=== PATIENT | female | born 1975 | race Caucasian/White ===

== ENCOUNTER 2016-11-23 14:09 | Emergency (ER) | payer OTHER ==
--- NOTE | 2016-11-23 14:14 | EDPHY ---
H & P Source: EMS Constitutional: Initial Vital Signs Heart Rate 90 11/23/16 14:23 Respiratory Rate 18 11/23/16 14:23 Blood Pressure 124/79 H 11/23/16 14:23 O2 Sat (%) 97 11/23/16 14:23 O2 Delivery Mode Room Air Allergies/Adverse Reactions: No Known Allergies Allergy (Unverified 03/25/10 20:50) Home Medications: Medication Instructions Recorded NO HOME MEDS 03/25/10 Medical Decision Making ED Course/Re-evaluation: CHIEF COMPLAINT: Stoke alert, left-sided deficits HISTORY OF PRESENT ILLNESS: The patient is a healthy 41 y/o female arriving emergently via EMS as a Stroke Alert after she developed acute left-sided weakness while riding to work less than an hour ago. She was last seen normal at 13:20, approximately 50 minutes prior to arrival in the ED. Her friend picked her up for work and noticed she was not acting appropriately and contacted 911 upon arrival at work. For EMS, she was unable to see anything in her left field of vision and had difficulty tracking. When asked to raise her left leg she raised her right leg. She denies any medical history including seizures or migraines, recent surgeries, and does not use anticoagulants. She mentions she might be . She tells me her right and left arm feel heavy. REVIEW OF SYSTEMS: A 10 point review of systems was performed and is negative with the exception of the elements mentioned in the history of present illness. PHYSICAL EXAM: General Appearance: Alert, well hydrated, obvious left hemiparesis, some inappropriate motor responses to commands. Head: Atraumatic without scalp tenderness or obvious injury Eyes: Pupils equal, round, reactive to light and accommodation, EOMI, no trauma , no injection. Ears: Clear bilaterally, no perforation, normal landmarks Nose: Atraumatic, no rhinorrhea, clear. Throat: There is no erythema or exudates, no lesions, normal tonsils, mucus membranes moist. Neck: Supple, 2+ carotid upstroke, non-tender, no lymphadenopathy. Respiratory: No retractions, no distress, no wheezes, and no accessory muscle use. Lungs are clear to auscultation bilaterally. Cardiovascular: Regular rate and rhythm, no murmurs, rubs, or gallops. Bilateral carotid, radial, dorsalis pedis, and posterior tibial pulses intact. Good capillary refill all extremities. Gastrointestinal: Abdomen is soft, non-tender, non-distended, no masses, no rebound, no guarding, no peritoneal signs. Musculoskeletal: Normal active ROM of all extremities, atraumatic. Neurological: Alert and interactive. Oriented x4. Left-sided neglect, left arm and leg weakness. Intermittent left hemiparesis, able to lift left leg once, but not on command. Looks to the right when I ask her to look to the left. Intermittent left hand posturing consistent with upper motor neuron sign. Skin: No rashes, good turgor, no nodules on palpation. PAST MEDICAL HISTORY: Denies PAST SURGICAL HISTORY: Denies SOCIAL HISTORY: : Arnold Wilkerson [phone] DIAGNOSTICS/PROCEDURES/CRITICAL CARE TIME: Study: CT of the Head Indication: Stoke alert Results: CT scan of the head was obtained. The results of the study are normal. The study was read by the radiologist, Dr. Seo. I viewed the images myself on the PACS system. I spent a total of 45 minutes of critical care time including but not limited to obtaining history, performing a physical exam, ordering interventions and the bedside monitoring of those interventions, collecting and interpreting tests and discussion with consultants but not including time spent performing procedures. DIFFERENTIAL DIAGNOSIS: The differential diagnosis for the patient's neurologic deficits included but was not limited to peripheral causes, central causes including CVA, TIA, electrolyte abnormalities and dehydration, cardiogenic causes, atypical causes like migraine syndrome. MEDICAL DECISION MAKIN: Met EMS upon arrival and took report. IV established by EMS. Labs sent including BHCG. 1409: Patient sent to CT for non-contrast Head CT. [facility] on standby. TPA mixed. 1415: Head CT: My interpretation is negative for bleed. Waiting on radiologist read. 1420: Patient returned from CT. Waiting on [facility] consult and radiologist read of noncontrast head CT. Plan for TPA and head CTA pending neurologist assessment. 1430: [facility] remote evaluation. Patient states she felt normal upon waking. Around 12:20 she had the sensation of a "fishbowl closing in." She felt like she would faint and began to feel weakness at that time. She says she "spatially felt like I lost time." She reports she is trying to get , but does not think she is currently . Reexamination shows improvement of left leg weakness, continued left-sided neglect, and now noticeable posturing of left hand that is likely an upper motor neuron sign. 1440: Neurologist recommends TPA and CTA. BHCG is negative. I discussed the risks and benefits of the medication with the patient. She consents to TPA use. 1443: TPA administered. 1445: Consulted with Dr. Leslie, [facility]. She wants the patient flown immediately prior to CTA. [facility] has been informed and is on standby. EMS medic contacted patient's to inform of transfer. did not answer the phone. 1510: Patient transferred via [facility] to [facility] ([place], [place]). - Data Points Laboratory Results: Laboratory Results 11/23/16 14:15 11/23/16 14:15 11/23/16 11/23/16 14:15 14:12 WBC 8.28 10^3/uL (3.80-9.50) RBC 4.65 10^6/uL (4.18-5.33) Hgb 13.7 g/dL (12.6-16.3) POC Hgb 14.3 gm/dL (12.3-15.9) Hct 39.3 % (38.0-47.0) POC Hct 42 % (35.5-47.5) MCV 84.5 fL (81.5-99.8) MCH 29.5 pg (27.9-34.1) MCHC 34.9 g/dL (32.4-36.7) RDW 12.8 % (11.5-15.2) Plt Count 325 10^3/uL (150-400) MPV 9.5 fL (8.7-11.7) Neut % (Auto) 75.3 H % (39.3-74.2) Lymph % (Auto) 17.5 % (15.0-45.0) [place] % (Auto) 5.3 % (4.5-13.0) Eos % (Auto) 0.8 % (0.6-7.6) Baso % (Auto) 0.6 % (0.3-1.7) Nucleat RBC Rel Count 0.0 % (0.0-0.2) Absolute Neuts (auto) 6.23 10^3/uL (1.70-6.50) Absolute Lymphs (auto) 1.45 10^3/uL (1.00-3.00) Absolute Monos (auto) 0.44 10^3/uL (0.30-0.80) Absolute Eos (auto) 0.07 10^3/uL (0.03-0.40) Absolute Basos (auto) 0.05 10^3/uL (0.02-0.10) Absolute Nucleated RBC 0.00 10^3/uL (0-0.01) Immature Gran % 0.5 % (0.0-1.1) Immature Gran # 0.04 10^3/uL (0.00-0.10) PT 14.1 SEC (12.0-15.0) INR 1.10 (0.83-1.16) APTT 29.1 SEC (23.0-38.0) POC Sodium 141 mEq/L (134-144) Sodium 142 mEq/L (134-144) POC Potassium 3.4 mEq/L (3.3-5.0) Potassium 3.6 mEq/L (3.5-5.2) POC Chloride 100 mEq/L (96-108) Chloride 101 mEq/L (97-110) Carbon Dioxide 28 mEq/l (22-31) Anion Gap 13 mEq/L (8-16) POC BUN 5 L mg/dL (7-23) BUN 6 L mg/dL (7-23) Creatinine 0.7 mg/dL (0.6-1.0) POC Creatinine 0.7 mg/dL (0.6-1.2) Estimated GFR > 60 Glucose 107 H mg/dL (70-100) POC Glucose 109 H mg/dL (70-100) Calcium 9.7 mg/dL (8.5-10.4) Troponin I < 0.012 ng/mL (0-0.034) Beta HCG, Qual NEGATIVE Medications Given: Discontinued Medications Alteplase, Recombinant (Activase) 62.38769 mg IV ONCE ONE PRN Reason: Protocol Stop: 11/23/16 14:54 Last Admin: 11/23/16 14:45 Dose: 62.47862 mg Alteplase, Recombinant (Activase) 6.07472 mg IV ONCE ONE PRN Reason: Protocol Stop: 11/23/16 14:54 Last Admin: 11/23/16 14:43 Dose: 6.32547 mg Point of Care Test Results: 11/23/16 14:12 POC Sodium 141 POC Potassium 3.4 POC Chloride 100 POC BUN 5 L POC Creatinine 0.7 POC Glucose 109 H Departure - Departure Disposition: [facility] Clinical Impression: Acute ischemic stroke Condition: Serious Referrals: Patient,NotPresent [Primary Care Provider] - As per Instructions
[2016-11-23] MEDS ORDERED: ALTEPLASE 100 MG/100 ML VIAL IV ONE ×2 (14:22→14:53)
[2016-11-23 14:25] VITALS: RESP 18; O2SAT 97
[2016-11-23 14:26] LABS: % IMMATURE GRANULYOCYTES 0.5 % (0.0-1.1); ABSOLUTE IMMATURE GRANULOCYTES 0.04 10^3/uL (0.00-0.10); ADD DIFF? NO; ADD MORPH? NO; ADD SCAN? NO; ATYPICAL LYMPHOCYTE FLAG 0 (0-99); FRAGMENT RBC FLAG 0 (0-99); HEMATOCRIT 39.3 % (38.0-47.0); HEMOGLOBIN 13.7 g/dL (12.6-16.3); LEFT SHIFT FLG 0 (0-99); LIPEMIA HEMOLYSIS FLAG 90 (0-99); MEAN CELL HEMOGLOBIN 29.5 pg (27.9-34.1); MEAN CELL HEMOGLOBIN CONCENTR. 34.9 g/dL (32.4-36.7); MEAN CELL VOLUME 84.5 fL (81.5-99.8); MEAN PLATELET VOLUME 9.5 fL (8.7-11.7); PLATELET CLUMPS FLAG 0 (0-99); PLATELET COUNT 325 10^3/uL (150-400); RED BLOOD CELL COUNT 4.65 10^6/uL (4.18-5.33); RED CELL DISTRIBUTION WIDTH 12.8 % (11.5-15.2)
--- NOTE | 2016-11-23 14:27 | CT ---
Noncontrast Head CT 1416 hours History: Stroke alert. Left-sided deficits with arm weakness. Technique: Standard noncontrast head CT protocol utilizing axial images was acquired through the hunter varium. Images were reconstructed in multiple planes as well. Dose reduction techniques were utilized . Findings: The cerebral parenchyma has a normal attenuation throughout. There are no masses, intracran ial hemorrhage, subdural collections, or evidence of recent cerebral infarction. The bones are unrem arkable. There is mild mucosal thickening inferior aspect of each maxillary sinus. Otherwise, the par anasal sinuses are clear. Impression: 1. No intracranial abnormality seen. 2. Nonspecific mild inferior maxillary sinus disease. These findings were sent by secure text message to Dr. Aryan Rizo at 1425 hrs.
[2016-11-23 14:35] LABS: INR 1.1 (0.83-1.16); PROTIME(PATIENT) 14.1 SEC (12.0-15.0)
[2016-11-23 14:36] LABS: APTT 29.1 SEC (23.0-38.0)
[2016-11-23] MEDS ORDERED: IOPAMIDOL (ISOVUE 370) 100 ML BTL IV ONE (14:38)
[2016-11-23 14:46] LABS: ANION GAP 13 mEq/L (8-16); CALCIUM 9.7 mg/dL (8.5-10.4); CARBON DIOXIDE 28 mEq/l (22-31); CHLORIDE 101 mEq/L (97-110); CREATININE 0.7 mg/dL (0.6-1.0); GLOMERULAR FILTRATION RATE > 60; GLUCOSE 107 mg/dL (70-100); POTASSIUM 3.6 mEq/L (3.5-5.2); SODIUM 142 mEq/L (134-144)
--- NOTE | 2016-11-23 14:49 | CPEKG ---
Heart Rate: 91 RR Interval: 659 P-R Interval: 152 QRSD Interval: 122 QT Interval: 392 QTC Interval: 483 P [place]: 47 QRS [place]: 50 T Wave [place]: -4 EKG Severity - ABNORMAL ECG - EKG Impression: SINUS RHYTHM EKG Impression: NONSPECIFIC INTRAVENTRICULAR CONDUCTION DELAY EKG Impression: MINIMAL ST DEPRESSION, INFERIOR LEADS Electronically Signed By: Aryan Rizo 23-Nov-2016 20:16:23
[2016-11-23] MEDS ORDERED: NS 50 ML IV ONE (14:53)
[2016-11-23] MEDS ORDERED: ALTEPLASE 1 MG/ML SYR IV ONE (14:53)
[2016-11-23 14:55] LABS: TROPONIN I < 0.012 ng/mL (0-0.034)
[2016-11-23 15:17] VITALS: PULSE 87; TEMP 98
[2016-11-23 15:48] VITALS: BP 130/90
== END 2016-11-23 15:08 | disposition short-term general hospital (02) ==
LOC: EDUNIT#
DX: I63.9 Cerebral infarction, unspecified (principal)
CPT/HCPCS: 82947-QW; 96374; J2997; Q9967

== ENCOUNTER 2016-11-26 14:40 | Inpatient (IN) | payer OTHER ==
[2016-11-27] MEDS ORDERED: MAG HYDROX/AL HYDROX/SIMETH 30 ML UDCUP PO PRN (17:24)
[2016-11-27] MEDS ORDERED: ACETAMINOPHEN 325 MG TAB PO PRN (17:24)
[2016-11-27] MEDS ORDERED: POLYETHYLENE GLYCOL 3350 17 GM PKT PO PRN (17:24)
[2016-11-27] MEDS ORDERED: SENNOSIDES/DOCUSATE SODIUM TAB PO PRN (17:24)
[2016-11-27] MEDS: ATORVASTATIN CALCIUM 20 MG TAB PO SCH (19:58)
--- NOTE | 2016-11-27 20:53 | PDGENHP ---
History and Physical - Chief Complaint Stroke - History of Present Illness Date of admission: 11/27/2016 Referring physician: Martina Bhatia MD Time of evaluation: 1700 Referring facility: [facility] Rehabilitation diagnosis: Stroke Impairment group: 01.1 Etiologic diagnosis: ~Stroke Date of onset: 11/23/2016 History of present illness: ~Olinda Wilkerson is a pleasant Left handed 41 year old female who presents for acute rehabilitation following right MEDIA RELATIONS SPECIALIST infarct. Healthy female noted left hemiparesis and presented to [facility] on 11/23 and was noted to have NIHSS of 13 so was administered tpa and transferred to [facility] for Neuro ICU. MRB significant for right MEDIA RELATIONS SPECIALIST infarct with left occipital, temporal and thalamus ischemia (some petechial hemorrhaging in occipital lobe). Had CTA without significant large vessel obstruction or atherosclerosis, Echo without thrombus or shunt, EKG NSR, and LDL 93. Hypercoagulopathic work up pending but strong family history of clotting predisposition (no personal h/o clots), currently on ASA 81mg and LMWH prophy. Has had significant improvement in deficits since onset. Lives in garden apartment with . 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 Home is 6 steps down then all on one floor, mostly available for assist. PT/OT from 11/25 note Min-ModA for most ADLs and mobility SAFETY AND SKILL BASED PAY MANAGER notes no aphasia or dysphagia History Information - Allergies/Home Medication List Allergies/Adverse Reactions: No Known Allergies Allergy (Unverified 03/25/10 20:50) Home Medications: Aspirin EC [Aspirin EC 81 mg (*)] 81 mg PO DAILY 11/27/16 [Last Taken 11/27/16 09:00] Atorvastatin Calcium [Lipitor 20 mg (*)] 20 mg PO HS 11/27/16 [Last Taken 21:00] I have personally reviewed and updated: family history, medical history, social history, surgical history Past Medical History: none - Past Medical History no pertinent PMH - Surgical History Reports: no pertinent surgical hx - Family History Additional family history: Multiple DVTs - Social History Smoking Status: Never smoked Alcohol Use: None Drug Use: None Additional social history: See hpi Review of Systems ROS: 10pt was reviewed & negative except for what was stated in HPI & below EENMT: Reports: other (loss of vision) Neurological: Reports: weakness Physical Exam Temp Pulse Resp BP Pulse Ox 36.4 C 74 18 114/74 94 11/27/16 15:30 11/27/16 15:30 11/27/16 15:30 11/27/16 15:30 11/27/16 15:30 Constitutional: no apparent distress, appears nourished, not in pain Eyes: PERRL, anicteric sclera, EOMI Ears, Nose, Mouth, Throat: moist mucous membranes Cardiovascular: regular rate and rhythym, no murmur, rub, or gallop Respiratory: no respiratory distress, clear to auscultation Skin: normal color Musculoskeletal: no muscle tenderness Neurologic: AAOx3, sensation intact bilaterally, weakness (Right UE+LE 5/5, Left UE 3/5 and Left LE 4/5), other (left homonymous hemianopsia AND left neglect to DSS) Psychiatric: interacting appropriately (somewhat disinhibited) Lab Data & Imaging Review (from 11/25) WBC 1.8 HGB 11.2 PLT 250 Na 141 K 3.8 (11/27) Cl 105 C02 28 BUN 7 Cr 0.66 Glu 97 LFTs normal Albumin 3 Imaging Review: MRB with Left temporal, occipital, and thalamic infarct. Also notable chronic right frontal volume loss. Visualized and Interpreted EKG results: No EKG Interpretation: Positive for: normal sinsus rhythm Assessment & Plan Assessment: Ms. Wilkerson is a pleasant Left handed 41 year old female who presents following acute right MEDIA RELATIONS SPECIALIST infarct on 11/23 with residual left hemiparesis, dense left homonymous hemianopia, left neglect, and mild cognitive decline resulting in significant functional decline with ADLs and mobility. She is appropriate for rehabilitation with therapy needs for speech therapy regarding her cognitive decline and physical and occupational therapy regarding mobility and activities of daily living. Her goal is to be independent enough to return home and live~without assistance. She will need close medical management and nursing care regarding her comorbidities including coagulopathy, risk for falls, risk for DVT, infectious risks,~initiation of complicated novel medical regiment, and medical education. She will receive therapy including Physical Therapy, occupational therapy, and speech and language pathology, for 30-60 minutes each day 5-7 days a week, with a total of 15 hours per week or more, her expected duration of stay is 10-14 days. Is expected that once she is ready for discharge she will continue to benefit from an outpatient neuro rehab program once she returns home. Plan: * Debility following Right MEDIA RELATIONS SPECIALIST infarct. Continue physical and occupational therapy to optimize functional status and mobility, SAFETY AND SKILL BASED PAY MANAGER to optimize cognitive function address neglect. * Right MEDIA RELATIONS SPECIALIST Stroke (temporal, occipital and thalamic involvement) -Embolic and athlerosclerotic work up negative, family history suggestive of hypercoagulopathic etiology, work up pending -Prophy: Atorva 20mg, ASA 81mg daily->will likely need full AC pending Neuro f/u * Prophylaxis-> DVT, Lovenox 40mg daily. ~GI not indicated F/U: Dr. Wilfredo Ayala (Neuro) in 2-3 weeks Will need to establish PCP [facility] 10 days. Plan to d/c to home (garden apartment) with available for assist. Will likely be unable to drive at discharge
[2016-11-28] MEDS: ASPIRIN EC 81 MG TAB PO SCH (09:48)
[2016-11-28] MEDS: ENOXAPARIN 40 MG/0.4 ML SYR SC SCH (09:48)
--- NOTE | 2016-11-28 12:32 | SOAPPROG ---
SOAP Progress Note Assessment/Plan: Ms. Wilkerson is a pleasant Left handed 41 year old female who presents following acute right SOCIAL SCIENCES RESEARCH SCIENTIST infarct on 11/23 with residual left hemiparesis, dense left homonymous hemianopia, left neglect, and mild cognitive decline resulting in significant functional decline with ADLs and mobility. * Debility following Right SOCIAL SCIENCES RESEARCH SCIENTIST infarct. Continue physical and occupational therapy to optimize functional status and mobility, TAP BUILDER to optimize cognitive function address neglect. * Right SOCIAL SCIENCES RESEARCH SCIENTIST Stroke (temporal, occipital and thalamic involvement) -Embolic and atherosclerotic work up negative, family history suggestive of hypercoagulopathic etiology, work up pending -Prophy: Atorva 20mg, ASA 81mg daily->will likely need full AC pending Neuro f/u * Prophylaxis-> DVT, Lovenox 40mg daily. GI not indicated F/U: Dr. Wilfredo Ayala (Neuro) in 2-3 weeks Will need to establish PCP [facility] 7 days. Plan to d/c to home (garden apartment) with available for assist. Will likely be unable to drive at discharge Subjective: No events. No complaints this a.m. Notes fairly rapid physical recovery though frustrated with hand dexterity. Denies constipation or nausea. Objective: Vital Signs Temp Pulse Resp BP Pulse Ox 36.5 C 88 18 101/74 93 11/28/16 08:00 11/28/16 08:00 11/28/16 08:00 11/28/16 08:00 11/28/16 08:00 11/27/16 11/28/16 11/29/16 05:59 05:59 05:59 Intake Total 540 Output Total 350 Balance 190 - Pending Discharge Pending Discharge Within 24 Hours: No Pending Discharge Within 48 Hours: No Physical Exam - Physical Exam General Appearance: alert, no apparent distress EENT: PERRL/EOMI Neck: supple Respiratory: lungs clear, normal breath sounds Cardiac/Chest: regular rate, rhythm Abdomen: non-tender, soft Skin: normal color Neuro/Psych: alert, normal mood/affect, oriented x 3, motor weakness (Left UE (2 -3/5)>LE (3-4/5) kyrie), sensory deficit (Left field cut and left neglect) ICD10 Worksheet Patient Problems: Problems Problem Status Diagnosed Acute right SOCIAL SCIENCES RESEARCH SCIENTIST stroke Acute - ICD10 Problem Qualifiers (1) Acute right SOCIAL SCIENCES RESEARCH SCIENTIST stroke
[2016-11-28] MEDS: ATORVASTATIN CALCIUM 20 MG TAB PO SCH (21:10)
[2016-11-29] MEDS: ENOXAPARIN 40 MG/0.4 ML SYR SC SCH (07:17)
[2016-11-29] MEDS: ASPIRIN EC 81 MG TAB PO SCH (07:17)
--- NOTE | 2016-11-29 12:41 | SOAPPROG ---
SOAP Progress Note Assessment/Plan: Assessment: Left handed 41 year old female S/P acute right DEHAIRER infarct on 11/23, treated with TPA, with residual left hemiparesis, dense left homonymous hemianopia, left neglect, and mild cognitive decline resulting in significant functional decline with ADLs and mobility: * Debility following Right DEHAIRER infarct. Continue physical and occupational therapy to optimize functional status and mobility, MANAGER STRATEGY & ACCOUNT to optimize cognitive function address neglect. * Right DEHAIRER Stroke (temporal, occipital and thalamic involvement) -Embolic and atherosclerotic work up negative, family history suggestive of hypercoagulopathic etiology, work up pending -Prophy: Atorva 20mg, ASA 81mg daily->will likely need full AC pending Neuro f/u * Prophylaxis-> DVT, Lovenox 40mg daily. GI not indicated * Insomnia. Will D/C SCDs to promote sleep. She wants to try "Sleepytime" tea to be brought in by . F/U: Dr. Wilfredo Ayala (Neuro) in 2-3 weeks Will need to establish PCP [facility] 7 days. Plan to d/c to home (garden apartment) with available for assist. Will likely be unable to drive at discharge 11/29/16 12:41 Subjective: C/O difficulty falling asleep last night. Had some discomfort with SCDs. Mind was racing. No pain, f/c, dyspnea, cough, n/v/c/d. Reports return of function LUE. Objective: Vital Signs Temp Pulse Resp BP Pulse Ox 36.8 C 62 16 97/65 L 97 11/29/16 06:55 11/29/16 06:55 11/29/16 06:55 11/29/16 06:55 11/29/16 06:55 11/28/16 11/29/16 11/30/16 05:59 05:59 05:59 Intake Total 540 880 Output Total 350 1050 Balance 190 -170 Physical Exam - Physical Exam General Appearance: WD/WN, alert, no apparent distress Respiratory: normal breath sounds, No crackles, No rhonchi, No wheezing Cardiac/Chest: regular rate, rhythm, No edema Skin: normal color Neuro/Psych: alert, normal mood/affect, oriented x 3, motor weakness (LUE ataxia ), other (R gaze preference. Sensation intact to DSS B UE.), No EOM palsy ICD10 Worksheet Patient Problems: Problems Problem Status Diagnosed Acute right DEHAIRER stroke Acute
[2016-11-29] MEDS: ATORVASTATIN CALCIUM 20 MG TAB PO SCH (20:09)
[2016-11-30] MEDS: ASPIRIN EC 81 MG TAB PO SCH (07:49)
[2016-11-30] MEDS: ENOXAPARIN 40 MG/0.4 ML SYR SC SCH (07:49)
--- NOTE | 2016-11-30 14:26 | SOAPPROG ---
SOAP Progress Note Assessment/Plan: Assessment: Left handed 41 year old female S/P acute right DRYLAND FARMER infarct on 11/23, treated with TPA, with residual left hemiparesis, dense left homonymous hemianopia, left neglect, and mild cognitive decline resulting in significant functional decline with ADLs and mobility: * Debility following Right DRYLAND FARMER infarct. 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 * Right DRYLAND FARMER Stroke (temporal, occipital and thalamic involvement) -Embolic and atherosclerotic work up negative, family history suggestive of hypercoagulopathic etiology, work up pending -Prophy: Atorvastatin 20mg, ASA 81mg daily->will likely need full AC pending Neuro f/u * Prophylaxis-> DVT, Lovenox 40mg daily. GI not indicated * Insomnia. Will D/C SCDs to promote sleep. She wants to try "Sleepytime" tea to be brought in by . F/U: Dr. Wilfredo Ayala (Neuro) in 2-3 weeks Will need to establish PCP [facility] 7 days. Plan to d/c to home (garden apartment) with available for assist. Will likely be unable to drive at discharge 11/30/16 14:25 Subjective: No complaints. Slept much better without SCDs. Denies f/c, cough/dyspnea, n/v/ c/d. Objective: Vital Signs Temp Pulse Resp BP Pulse Ox 36.9 C 81 18 115/78 90 L 11/29/16 19:38 11/29/16 19:38 11/29/16 19:38 11/29/16 19:38 11/29/16 19:38 11/29/16 11/30/16 12/01/16 05:59 05:59 05:59 Intake Total 880 1500 Output Total 1050 500 Balance -170 1000 Physical Exam - Physical Exam General Appearance: WD/WN, alert, no apparent distress Respiratory: No respiratory distress, No accessory muscle use Skin: normal color, warm/dry Neuro/Psych: alert, normal mood/affect, oriented x 3, abnormal gait (Ambulating with bilateral trekking poles; dysrhythmia on L.) ICD10 Worksheet Patient Problems: Problems Problem Status Diagnosed Acute right DRYLAND FARMER stroke Acute
[2016-11-30] MEDS: ATORVASTATIN CALCIUM 20 MG TAB PO SCH (20:33)
[2016-12-01] MEDS: ASPIRIN EC 81 MG TAB PO SCH (08:43)
[2016-12-01] MEDS: ENOXAPARIN 40 MG/0.4 ML SYR SC SCH (08:44)
--- NOTE | 2016-12-01 11:38 | SOAPPROG ---
SOAP Progress Note Assessment/Plan: Assessment: Left handed 41 year old female S/P acute right DRYWALL HANGER infarct on 11/23, treated with TPA, with residual left hemiparesis, dense left homonymous hemianopia, left neglect, and mild cognitive decline resulting in significant functional decline with ADLs and mobility: * Debility following Right DRYWALL HANGER infarct. Initial FIM 72 on 12/01/16. Functionally limited by L neglect, decreased motor planning, decreased proprioception LLE, impacting mobility and ADLs. Continue physical and occupational therapy to optimize functional status and mobility. * Cognitive impairment. Noted to be perseverative, disinhibited and impulsive, with deficits to memory, problem solving and new learning. 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 * Right DRYWALL HANGER Stroke (temporal, occipital and thalamic involvement) -Embolic and atherosclerotic work up negative, family history suggestive of hypercoagulopathic etiology, work up pending. Message left for [facility] re plan for anticoagulation. [facility] today : no result yet for Protein S deficiency. -Prophy: Atorvastatin 20mg, ASA 81mg daily->will likely need full AC pending Neuro f/u * Prophylaxis-> DVT, Lovenox 40mg daily. GI not indicated * Insomnia. D/C'd SCDs to promote sleep. She wants to try "Sleepytime" tea to be brought in by . She's sleeping much better. F/U: Dr. Wilfredo Ayala (Neuro) in 2-3 weeks Will need to establish PCP Attended staffing, 15 min. D/W case mgmt, nursing, PT, OT, BOILER INSPECTOR, construction millwright. Plan to d/c to home (garden apartment) with available for assist. Will likely be unable to drive at discharge. Tentative discharge date 12/10/16. 12/01/16 11:38 Subjective: No complaints. Slept well. No pain. No f/c, cough/dyspnea, n/v/c/d. Reports she had a menstrual ROUSE the first 3 days she was here but currently no ROUSE. Rouse was no migrainous: low-level pain, not unilateral, not pounding, no nausea. Objective: Vital Signs Temp Pulse Resp BP Pulse Ox 36.6 C 77 12 102/68 98 12/01/16 08:00 12/01/16 08:00 12/01/16 08:00 12/01/16 08:00 12/01/16 08:00 11/30/16 12/01/16 12/02/16 05:59 05:59 05:59 Intake Total 1500 720 240 Output Total 500 Balance 1000 720 240 - Time Spent With Patient Time Spent With Patient: Greater than 35 minutes floor time today, including more than 50% of time in coordination of care during staffing meeting, and counseling patient. Physical Exam - Physical Exam General Appearance: WD/WN, alert, no apparent distress Respiratory: No accessory muscle use, No decreased breath sounds Skin: normal color, warm/dry Neuro/Psych: alert, normal mood/affect, oriented x 3 ICD10 Worksheet Patient Problems: Problems Problem Status Diagnosed Acute right DRYWALL HANGER stroke Acute
[2016-12-01] MEDS: ATORVASTATIN CALCIUM 20 MG TAB PO SCH (20:18)
[2016-12-02] MEDS: ENOXAPARIN 40 MG/0.4 ML SYR SC SCH (09:43)
[2016-12-02] MEDS: ASPIRIN EC 81 MG TAB PO SCH (09:43)
--- NOTE | 2016-12-02 16:47 | SOAPPROG ---
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 Initial FIM 72 on 12/01/16. Functionally limited by L neglect, decreased motor planning, decreased proprioception LLE, impacting mobility and ADLs. Continue physical and occupational therapy to optimize functional status and mobility. * Cognitive impairment. Noted to be perseverative, disinhibited and impulsive, with deficits to memory, problem solving and new learning. Continue UPHOLSTERER INSIDE. * Right BENCH HAND MACHINE Stroke (temporal, occipital and thalamic involvement) -Embolic and atherosclerotic work up negative, family history suggestive of hypercoagulopathic etiology, work up pending. Message left for [facility] 11/30/16 re plan for anticoagulation. Called [facility] : no result yet for Protein S deficiency. -Prophy: Atorvastatin 20mg, ASA 81mg daily->will likely need full AC pending Neuro f/u * Prophylaxis-> DVT, Lovenox 40mg daily. GI not indicated * Insomnia. D/C'd SCDs to promote sleep. She wants to try "Sleepytime" tea to be brought in by . She's sleeping much better. F/U: Dr. Wilfredo Ayala (Neuro) in 2-3 weeks Will need to establish PCP Plan to d/c to home (garden apartment) with available for assist. Will likely be unable to drive at discharge. Tentative discharge date 12/10/16. 12/02/16 16:46 Subjective: Expresses frustration about restrictions (e.g. fall risk), slow progress, and therapy schedule running late. O/W w/out complaint. No pain, f/c, cough/ dyspnea, n/v/c/d. Sleeping better. Objective: Vital Signs Temp Pulse Resp BP Pulse Ox 36.5 C 60 16 97/60 L 96 12/02/16 06:07 12/02/16 06:07 12/02/16 06:07 12/02/16 06:07 12/02/16 06:07 12/01/16 12/02/16 12/03/16 05:59 05:59 05:59 Intake Total 720 1020 150 Balance 720 1020 150 Physical Exam - Physical Exam General Appearance: WD/WN, alert, no apparent distress Respiratory: No respiratory distress, No accessory muscle use Skin: normal color, warm/dry Neuro/Psych: alert, normal mood/affect, oriented x 3, other (perseverative), No speech abnormalities ICD10 Worksheet Patient Problems: Problems Problem Status Diagnosed Acute right BENCH HAND MACHINE stroke Acute
[2016-12-02] MEDS: ATORVASTATIN CALCIUM 20 MG TAB PO SCH (20:38)
[2016-12-03] MEDS: ENOXAPARIN 40 MG/0.4 ML SYR SC SCH (07:49)
[2016-12-03] MEDS: ASPIRIN EC 81 MG TAB PO SCH (08:09)
--- NOTE | 2016-12-03 12:19 | SOAPPROG ---
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 Initial FIM 72 on 12/01/16. Functionally limited by L neglect, decreased motor planning, decreased proprioception LLE, impacting mobility and ADLs. Continue physical and occupational therapy to optimize functional status and mobility. * Cognitive impairment. Noted to be perseverative, disinhibited and impulsive, with deficits to memory, problem solving and new learning. 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 * Right MOLD YARN SUPERVISOR Stroke (temporal, occipital and thalamic involvement) -Embolic and atherosclerotic work up negative, family history suggestive of hypercoagulopathic etiology, work up pending. Message left for [facility] 11/30/16 re plan for anticoagulation. Called [facility] : no result yet for Protein S deficiency. -Prophy: Atorvastatin 20mg, ASA 81mg daily->will likely need full AC pending Neuro f/u * Anemia on labs from OSH. Recheck CBC; check iron panel per patient's request. * Prophylaxis-> DVT, Lovenox 40mg daily. GI not indicated * Insomnia. D/C'd SCDs to promote sleep. She wants to try "Sleepytime" tea to be brought in by . She's sleeping much better. F/U: Dr. Wilfredo Ayala (Neuro) in 2-3 weeks Will need to establish PCP Plan to d/c to home (garden apartment) with available for assist. Will likely be unable to drive at discharge. Tentative discharge date 12/10/16. 12/03/16 12:34 Subjective: No complaints. Had a shower today and feels better. Reports improving use of l hand and increased awareness of visual field defect. She reports history of iron deficiency and would like to be tested. Objective: Vital Signs Temp Pulse Resp BP Pulse Ox 36.7 C 83 16 93/62 L 97 12/03/16 07:19 12/03/16 07:19 12/03/16 07:19 12/03/16 07:19 12/03/16 07:19 12/02/16 12/03/1612/04/17 05:59 05:59 05:59 Intake Total 1020 150 420 Output Total 750 Balance 1020 150 -330 Physical Exam - Physical Exam General Appearance: WD/WN, alert, no apparent distress Respiratory: normal breath sounds, No crackles, No rhonchi, No wheezing Cardiac/Chest: regular rate, rhythm, No edema Skin: normal color, warm/dry Neuro/Psych: alert, normal mood/affect, oriented x 3, other (R gaze preference, though crosses midline.) ICD10 Worksheet Patient Problems: Problems Problem Status Diagnosed Acute right MOLD YARN SUPERVISOR stroke Acute
[2016-12-03] MEDS: ATORVASTATIN CALCIUM 20 MG TAB PO SCH (21:29)
[2016-12-04 08:50] LABS: HEMATOCRIT 39.7 % (38.0-47.0); HEMOGLOBIN 13.6 g/dL (12.6-16.3); MEAN CELL HEMOGLOBIN 29.8 pg (27.9-34.1); MEAN CELL HEMOGLOBIN CONCENTR. 34.3 g/dL (32.4-36.7); MEAN CELL VOLUME 87.1 fL (81.5-99.8); RED BLOOD CELL COUNT 4.56 10^6/uL (4.18-5.33)
[2016-12-04 09:11] LABS: % SATURATION 22 % (20-55); TOTAL IRON BINDING CAPACITY 333 ug/dL (260-490)
[2016-12-04] MEDS: ASPIRIN EC 81 MG TAB PO SCH (09:22)
[2016-12-04] MEDS: ENOXAPARIN 40 MG/0.4 ML SYR SC SCH (09:22)
--- NOTE | 2016-12-04 11:35 | SOAPPROG ---
SOAP Progress Note Assessment/Plan: Assessment: Left handed 41 year old female S/P acute right KINDERGARTEN AIDE infarct on 11/23, treated with TPA, with residual left hemiparesis, dense left homonymous hemianopia, left neglect, and mild cognitive decline resulting in significant functional decline with ADLs and mobility: * Debility following Right KINDERGARTEN AIDE infarct. Initial FIM 72 on 12/01/16. Functionally limited by L neglect, decreased motor planning, decreased proprioception LLE, impacting mobility and ADLs. Continue physical and occupational therapy to optimize functional status and mobility. * Cognitive impairment. Noted to be perseverative, disinhibited and impulsive, with deficits to memory, problem solving and new learning. 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 * Right KINDERGARTEN AIDE Stroke (temporal, occipital and thalamic involvement) -Embolic and atherosclerotic work up negative, hypercoagulable work up pending. Message left for [facility] 11/30/16 re plan for anticoagulation. -Prophy: Atorvastatin 20mg, ASA 81mg daily->will likely need full AC pending Neuro f/u * Anemia on labs from OSH. CBC and iron panel recheck per patient's request : both within normal limits. * Prophylaxis-> DVT, Lovenox 40mg daily. GI not indicated * Insomnia. D/C'd SCDs to promote sleep. Using "Sleepytime" tea, and she's sleeping much better. F/U: Dr. Wilfredo Ayala (Neuro) in 2-3 weeks Will need to establish PCP Plan to d/c to home (garden apartment) with available for assist. Will likely be unable to drive at discharge. Tentative discharge date 12/10/16. Plan: Cont Dr Posadas's rehab treatment plan 12/04/16 11:34 Subjective: No new problems or C/O's No F/C/CP/SOB/N/V/D Improved awareness/compensation of L inattention Objective: Vital Signs Temp Pulse Resp BP Pulse Ox 36.6 C 56 L 16 113/67 98 12/04/16 07:04 12/04/16 07:04 12/04/16 07:04 12/04/16 07:04 12/04/16 07:04 Laboratory Results 12/04/16 08:15 12/03/16 12/04/16 12/05/16 05:59 05:59 05:59 Intake Total 150 1580 600 Output Total 750 Balance 150 830 600 Physical Exam - Physical Exam General Appearance: alert, no apparent distress Neck: supple Respiratory: lungs clear Cardiac/Chest: regular rate, rhythm Skin: normal color, warm/dry, No rash Extremities: No pedal edema, No calf tenderness Neuro/Psych: alert, normal mood/affect, oriented x 3, motor weakness, sensory deficit, cognition abnormalities, other (No gross changes) ICD10 Worksheet Patient Problems: Problems Problem Status Diagnosed Acute right KINDERGARTEN AIDE stroke Acute
[2016-12-04] MEDS: ATORVASTATIN CALCIUM 20 MG TAB PO SCH (21:09)
[2016-12-05] MEDS: ASPIRIN EC 81 MG TAB PO SCH (08:57)
[2016-12-05] MEDS: ENOXAPARIN 40 MG/0.4 ML SYR SC SCH (08:57)
--- NOTE | 2016-12-05 16:49 | SOAPPROG ---
SOAP Progress Note Assessment/Plan: Assessment: Left handed 41 year old female S/P acute right PASTOR infarct on 11/23, treated with TPA, with residual left hemiparesis, dense left homonymous hemianopia, left neglect, and mild cognitive decline resulting in significant functional decline with ADLs and mobility: * Right PASTOR infarct. Initial FIM 72 on 12/01/16. Functionally limited by L neglect, decreased motor planning, decreased proprioception LLE, impacting mobility and ADLs. Continue physical and occupational therapy to optimize functional status and mobility. * Cognitive impairment. Improving deficits (perseverative, disinhibited and impulsive, decreased memory, problem solving and new learning). 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 * Right PASTOR Stroke (temporal, occipital and thalamic involvement) -Embolic and atherosclerotic work up negative, hypercoagulable work up pending. Message left for [facility] 11/30/16 re plan for anticoagulation. -Prophy: Atorvastatin 20mg, ASA 81mg daily->will likely need full AC pending Neuro f/u * Anemia on labs from OSH. CBC and iron panel recheck per patient's request : both within normal limits. * Prophylaxis-> DVT, Lovenox 40mg daily. GI not indicated * Insomnia. D/C'd SCDs to promote sleep. Using "Sleepytime" tea, and she's sleeping much better. F/U: Dr. Wiflredo Ayala (Neuro) in 2-3 weeks Will need to establish PCP Plan to d/c to home (garden apartment) with available for assist. Will likely be unable to drive at discharge. Tentative discharge date 12/10/16. Plan: Cont Dr Posadas's rehab treatment plan 12/05/16 16:47 Subjective: resting comfortably, working on brain puzzles, handwriting C/O being bored, No F/C/CP/SOB/N/V/D/C Objective: Vital Signs Temp Pulse Resp BP Pulse Ox 36.4 C 86 16 117/74 99 12/05/16 08:00 12/05/16 08:00 12/05/16 08:00 12/05/16 08:00 12/05/16 08:00 Laboratory Results 12/04/16 08:15 12/04/16 12/05/16 12/06/16 05:59 05:59 05:59 Intake Total 1580 1020 Output Total 750 Balance 830 1020 Physical Exam - Physical Exam General Appearance: alert, no apparent distress Respiratory: lungs clear Cardiac/Chest: regular rate, rhythm Skin: normal color, warm/dry Extremities: No pedal edema, No calf tenderness Neuro/Psych: alert, normal mood/affect, oriented x 3, motor weakness, sensory deficit, other (no acute changes) ICD10 Worksheet Patient Problems: Problems Problem Status Diagnosed Acute right PASTOR stroke Acute
[2016-12-05] MEDS: ATORVASTATIN CALCIUM 20 MG TAB PO SCH (20:15)
[2016-12-06] MEDS: ENOXAPARIN 40 MG/0.4 ML SYR SC SCH (07:48)
[2016-12-06] MEDS: ASPIRIN EC 81 MG TAB PO SCH (07:49)
--- NOTE | 2016-12-06 11:53 | SOAPPROG ---
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 Initial FIM 72 on 12/01/16. Functionally limited by L neglect, decreased motor planning, decreased proprioception LLE, impacting mobility and ADLs. Continue physical and occupational therapy to optimize functional status and mobility. Continue working on strategies for left visual field deficit/ neglect. Also discussed with pt on 12/06 the benefit of IPR and the need to maximize that benefit when available as intensive therapies are sands in early stages post stroke. * Cognitive impairment. Improving deficits (perseverative, disinhibited and impulsive, decreased memory, problem solving and new learning). 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 * Right SKIP OPERATOR Stroke (temporal, occipital and thalamic involvement) -Embolic and atherosclerotic work up negative, hypercoagulable work up pending. Message left for [facility] 11/30/16 re plan for anticoagulation. -Prophy: Atorvastatin 20mg, ASA 81mg daily->will likely need full AC pending Neuro f/u * Anemia on labs from OSH. CBC and iron panel recheck per patient's request : both within normal limits. * Prophylaxis-> DVT, Lovenox 40mg daily. GI not indicated * Insomnia. D/C'd SCDs to promote sleep. Using "Sleepytime" tea, and she's sleeping much better. * Adjustment. tearful when discussing the changes that she has endured recently , she is working with SW on these issues, and I counseled her during my interview as well on 12/06. F/U: Dr. Wilfredo Ayala (Neuro) in 2-3 weeks Will need to establish PCP Plan to d/c to home (garden apartment) with available for assist. Will likely be unable to drive at discharge. Tentative discharge date 12/10/16. Discussed on 12/06/2016 the need to avoid driving on discharge until cleared by a physician, as well as the need for a gradual return to work plan when appropriate. Cont Dr Posadas's rehab treatment plan. All medical issues are new to this provider. 12/06/16 11:48 Subjective: CC/ID: [id number] F post right SKIP OPERATOR stroke on 11/23 with left kyrie, left homonymous hemianopia, left neglect and cognitive changes. Primary concern today is adjustment to impairments and cognitive changes. Subjective: No acute events overnight. She endorsed episodic sadness about her functional changes, but not impairing her participation, no SI. She endorsed noticing decreased processing speed, but improved awareness of things on the left side of her body. She notes that she will have some difficulty going back to work and understands that she should not drive after being discharged. She wants to go home, but understands the importance of IPR for her recovery. Sleeping well, no pain, no new neurological changes. Stable motor and sensory status. Her is supportive per her report. Objective: Vital Signs Temp Pulse Resp BP Pulse Ox 36.3 C 83 16 107/77 96 12/05/16 19:24 12/05/16 19:24 12/05/16 19:24 12/05/16 19:24 12/05/16 19:24 Laboratory Results 12/04/16 08:15 12/05/16 12/06/16 12/07/16 05:59 05:59 05:59 Intake Total 1020 550 Balance 1020 550 - Time Spent With Patient Time Spent With Patient: 10 min - Pending Discharge Pending Discharge Within 24 Hours: No Pending Discharge Within 48 Hours: No Physical Exam - Physical Exam General Appearance: alert, no apparent distress EENT: No scleral icterus (R), No scleral icterus (L), No photophobia Respiratory: normal breath sounds, No respiratory distress, No accessory muscle use, No wheezing Cardiac/Chest: normal peripheral pulses, regular rate, rhythm, No edema, No bradycardia, No tachycardia Abdomen: No distended Skin: normal color, No pallor Extremities: No pedal edema, No swelling Neuro/Psych: alert, cognition abnormalities (slowed), speech abnormalities ( slowed), other (Mixed mood, also had dense homonymous L hemianopia but was intact to double simultaneous stimualtion at the hands. ) ICD10 Worksheet Patient Problems: Problems Problem Status Diagnosed Acute right SKIP OPERATOR stroke Acute Adjustment disorder Acute Impaired cognition Acute - ICD10 Problem Qualifiers (1) Impaired cognition (2) Adjustment disorder Qualifiers: Adjustment disorder type: with depressed mood Qualified Description: Adjustment disorder with depressed mood Qualifier Code(s): (F43.21) Adjustment disorder with depressed mood
[2016-12-06] MEDS: ATORVASTATIN CALCIUM 20 MG TAB PO SCH (20:50)
[2016-12-07] MEDS: ASPIRIN EC 81 MG TAB PO SCH (08:09)
[2016-12-07] MEDS: ENOXAPARIN 40 MG/0.4 ML SYR SC SCH (08:16)
--- NOTE | 2016-12-07 14:15 | SOAPPROG ---
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 Initial FIM 72 on 12/01/16. Functionally limited by L neglect, decreased motor planning, decreased proprioception LLE, impacting mobility and ADLs. Continue physical and occupational therapy to optimize functional status and mobility. * Cognitive impairment. Noted to be perseverative, disinhibited and impulsive, with deficits to memory, problem solving and new learning. 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 * Right OUTSIDE DELIVERER Stroke (temporal, occipital and thalamic involvement) -Embolic and atherosclerotic work up negative, family history suggestive of hypercoagulopathic etiology, work up pending. Message left for [facility] 11/30/16 re plan for anticoagulation. Called [facility] : no result yet for Protein S deficiency. Message left for [facility] 12/07/16. -Prophy: Atorvastatin 20mg, ASA 81mg daily->will likely need full AC pending Neuro f/u * Anemia on labs from OSH. Rechecke CBC and iron panel 12/04/16 per patient's request; all normal. * Prophylaxis-> DVT, Lovenox 40mg daily. GI not indicated * Insomnia. D/C'd SCDs to promote sleep. She wants to try "Sleepytime" tea to be brought in by . She's sleeping much better. F/U: Dr. Wilfredo Ayala (Neuro) in 2-3 weeks Will need to establish PCP Plan to d/c to home (garden apartment) with available for assist. Will likely be unable to drive at discharge. Tentative discharge date 12/10/16. 12/07/16 14:13 Subjective: No complaints. Asks about hyperbaric O2, and about continued need for enoxaparin. Objective: Vital Signs Temp Pulse Resp BP Pulse Ox 36.9 C 81 16 115/84 H 95 12/07/16 08:00 12/07/16 08:00 12/07/16 08:00 12/07/16 08:00 12/07/16 08:00 Laboratory Results 12/04/16 08:15 12/06/16 12/07/16 12/08/16 05:59 05:59 05:59 Intake Total 550 1000 240 Balance 550 1000 240 Physical Exam - Physical Exam General Appearance: WD/WN, alert, no apparent distress Respiratory: No respiratory distress, No accessory muscle use Skin: normal color, warm/dry Neuro/Psych: alert, normal mood/affect, oriented x 3, No abnormal gait ICD10 Worksheet Patient Problems: Problems Problem Status Diagnosed Acute right OUTSIDE DELIVERER stroke Acute Adjustment disorder Acute Impaired cognition Acute
[2016-12-07] MEDS: ATORVASTATIN CALCIUM 20 MG TAB PO SCH (20:01)
[2016-12-08] MEDS: ENOXAPARIN 40 MG/0.4 ML SYR SC SCH (08:47)
[2016-12-08] MEDS: ASPIRIN EC 81 MG TAB PO SCH (08:47)
--- NOTE | 2016-12-08 10:54 | PDOREHIP ---
Admission [facility] - Admission - 3 Day Assessment Period Admission Date/Day 1: 11/27/16 Day 2: 11/28/16 Day 3: 11/29/16 - Active Diagnoses Comorbidities and Co-existing Conditions at Admission: 79479. None of the Above - Skin Conditions Unhealed Pressure Ulcer (1 or more/Stage 1 or >)-Admission: 0. No (Late entry) Discharge [facility] - Discharge - 3 Day Assessment Period 2 Days Prior to Anticipated Discharge Date: 12/08/16 1 Day Prior to Anticipated Discharge Date: 12/09/16 Anticipated Discharge Date: 12/10/16
--- NOTE | 2016-12-08 11:00 | SOAPPROG ---
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 Initial FIM 72 on 12/01/16; gain to 113 on 12/08/16. I in room and on unit. Ambulating 300' indoors with S; outdoors SBA /cueing re obstacles. Gets lost in soares due to hemineglect and deficit to spatial orientation. LUE/LLE ataxia, worse with distraction. Continue physical and occupational therapy to optimize functional status and mobility. * Cognitive impairment. Moderate impairment to exec fn, attn, visuospatial skills, working memory. Needs rest time; gets fatigue. Continue SHIPPING AND RECEIVING. * Right WELFARE ADVISER Stroke (temporal, occipital and thalamic involvement). Hypercoagulable workup negative. Follow-up Neurology after discharge. -Prophy: Atorvastatin 20mg, ASA 81mg daily. * Anemia on labs from OSH. Rechecked CBC and iron panel 12/04/16 per patient's request; all normal. * Prophylaxis-> DVT, Lovenox 40mg dailyD/C 12/09/16 as no hypercoagulable state identified. * Insomnia. D/C'd SCDs to promote sleep. She wants to try "Sleepytime" tea to be brought in by . She's sleeping much better. F/U: Dr. Wilfredo Ayala (Neuro) in 2-[address] Mendez. Plan to d/c to home (garden apartment) with available for assist. Will likely be unable to drive at discharge. Return to work unlikely before 2 months. Tentative discharge date 12/10/16. Outpatient PT, OT & SHIPPING AND RECEIVING. 12/08/16 11:43 Subjective: No complaints. Slept well, not in pain, no f/c, cough/dyspnea, n/v/c/d. Objective: Vital Signs Temp Pulse Resp BP Pulse Ox 36.7 C 76 16 98/78 L 94 12/08/16 08:00 12/08/16 08:00 12/08/16 08:00 12/08/16 08:00 12/08/16 08:00 Laboratory Results 12/04/16 08:15 12/07/16 12/08/16 12/09/16 05:59 05:59 05:59 Intake Total 1000 1280 Balance 1000 1280 - Time Spent With Patient Time Spent With Patient: Greater than 35 minutes floor time today, including more than 50% of time in coordination of care during staffing meeting, and counseling patient. Physical Exam - Physical Exam General Appearance: WD/WN, alert, no apparent distress Respiratory: No respiratory distress, No accessory muscle use Skin: normal color, warm/dry Neuro/Psych: alert, normal mood/affect, oriented x 3, other (In kitchen with OT. ) ICD10 Worksheet Patient Problems: Problems Problem Status Diagnosed Acute right WELFARE ADVISER stroke Acute Adjustment disorder Acute Impaired cognition Acute
[2016-12-08] MEDS: ATORVASTATIN CALCIUM 20 MG TAB PO SCH (20:41)
[2016-12-09] MEDS: ASPIRIN EC 81 MG TAB PO SCH (08:48)
--- NOTE | 2016-12-09 15:46 | PDOREHIP ---
Admission [facility] - Admission - 3 Day Assessment Period Admission Date/Day 1: 11/27/16 Day 2: 11/28/16 Day 3: 11/29/16 Discharge [facility] - Discharge - 3 Day Assessment Period 2 Days Prior to Anticipated Discharge Date: 12/08/16 1 Day Prior to Anticipated Discharge Date: 12/09/16 Anticipated Discharge Date: 12/10/16 - Discharge Skin Conditions Unhealed Pressure Ulcer (1 or more/Stage 1 or >)-Discharge: 0. No
--- NOTE | 2016-12-09 16:41 | SOAPPROG ---
[facility] Progress Note Assessment/Plan: Assessment: Left handed 41 year old female S/P acute right LEHR ATTENDANT infarct on 11/23, treated with TPA, admitted to inpatient rehabilitation with residual left hemiparesis, dense left homonymous hemianopia, left neglect, and mild cognitive decline resulting in significant functional decline with ADLs and mobility: * Debility following Right LEHR ATTENDANT infarct. Initial FIM 72 on 12/01/16; gain to 113 on 12/08/16. I in room and on unit. Ambulating 300' indoors with S; outdoors SBA /cueing re obstacles. Gets lost in soares due to hemineglect and deficit to spatial orientation. LUE/LLE ataxia, worse with distraction. Continue physical and occupational therapy to optimize functional status and mobility. * Cognitive impairment. Moderate impairment to exec fn, attn, visuospatial skills, working memory. Needs rest time; gets fatigue. 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 * Right LEHR ATTENDANT Stroke (temporal, occipital and thalamic involvement). Hypercoagulable workup negative. D/W Neurologist Dr. Campbell 12/09/16. Follow- up Neurology after discharge. -Prophy: Atorvastatin 20mg, ASA 81mg daily. * Anemia on labs from OSH. Rechecked CBC and iron panel 12/04/16 per patient's request; all normal. * Prophylaxis-> DVT, Lovenox 40mg dailyD/C 12/09/16 as no hypercoagulable state identified. * Insomnia. D/C'd SCDs to promote sleep. She wants to try "Sleepytime" tea to be brought in by . She's sleeping much better. F/U: Dr. Wilfredo Ayala (Neuro) in 2-[address] Mendez. Plan to d/c to home (garden apartment) with available for assist. Will likely be unable to drive at discharge. Return to work unlikely before 2 months. Tentative discharge date 12/10/16. Outpatient PT, OT & TOY PAINTER. 12/09/16 16:39 Subjective: No complaints. Looking forward to going home tomorrow. Has been ambulating with , who know to stay on her left side to help her with awareness. Objective: Vital Signs Temp Pulse Resp BP Pulse Ox 36.9 C 92 14 111/80 92 12/09/16 08:00 12/09/16 08:00 12/09/16 08:00 12/09/16 08:00 12/09/16 08:00 Laboratory Results 12/04/16 08:15 12/08/16 12/09/16 12/10/16 05:59 05:59 05:59 Intake Total 1280 900 Output Total 550 Balance 1280 350 Physical Exam - Physical Exam General Appearance: WD/WN, alert, no apparent distress Respiratory: No respiratory distress, No accessory muscle use Skin: normal color, warm/dry Neuro/Psych: alert, normal mood/affect, oriented x 3, No abnormal gait ICD10 Worksheet Patient Problems: Problems Problem Status Diagnosed Acute right LEHR ATTENDANT stroke Acute Adjustment disorder Acute Impaired cognition Acute
[2016-12-09] MEDS: ATORVASTATIN CALCIUM 20 MG TAB PO SCH (21:34)
[2016-12-10] MEDS: ASPIRIN EC 81 MG TAB PO SCH (08:20)
[2016-12-10 08:40] VITALS: BP 106/86; PULSE 82; RESP 16; TEMP 97.9; O2SAT 92
== END 2016-12-10 13:05 | disposition home health service (06) | DRG 57 ==
LOC: BREH 11-27 15:18
PROVIDERS: ADMIT Internal Medicine; ATTEND Internal Medicine
PROC: F08Z7ZZ Vocational Activities and Functional Community or Work Reintegration Skills Treatment (ICD-10-PCS; principal; 2015-11-27)
PROC: F06Z6ZZ Communicative/Cognitive Integration Skills Treatment (ICD-10-PCS; principal; 2015-11-27)
PROC: F07Z5ZZ Bed Mobility Treatment (ICD-10-PCS; principal; 2015-11-27)
DX: I69.252 Hemiplegia and hemiparesis following other nontraumatic intracranial hemorrhage affecting left dominant side (principal); I69.219 Unspecified symptoms and signs involving cognitive functions following other nontraumatic intracranial hemorrhage; I69.298 Other sequelae of other nontraumatic intracranial hemorrhage; H53.462 Homonymous bilateral field defects, left side; G47.00 Insomnia, unspecified
CPT/HCPCS: 92507-GN; 92522-GN; 92526; 92610; 97110-GO; 97110-GP; 97112-GO; 97112-GP; 97116-GP; 97162-GP; 97166-GO; 97530-GO; 97532-GO; 97535-GO; J1650